=== PATIENT | female | born 1945 | race Two or more races ===

== ENCOUNTER 2016-07-11 11:25 | Emergency (ER) | payer SELFPAY ==
[~2016-07-11] VITALS: Ht 152.4 cm; Wt 72.6 kg
[2016-07-11] MEDS ORDERED: LORazepam 2MG/ML-1ML VIAL IV ONE (13:15)
[2016-07-11 13:23] VITALS: BP 124/71
[2016-07-11 13:49] LABS: Basophils # (auto) 0 uL; Basophils % (auto) 0.1 % (0.0-2.0); DEFINITIVE VIEW TRANSMISSION; Eosinophils # (auto) 0 uL; Eosinophils % (auto) 0.2 % (0.0-7.0); Hematocrit 27.6 % (36.0-46.0); Hemoglobin 8.2 g/dL (12.2-16.2); Lymphocytes # (auto) 2.1 uL; Lymphocytes % (auto) 15.6 % (10.0-50.0); Mean Corpuscular Hemoglobin 19.8 pg (28.0-32.0); Mean Corpuscular Hgb Conc. 29.8 g/dL (32.0-36.0); Mean Corpuscular Volume 66.5 fL (80.0-100.0); Mean Platelet Volume 9.2 fL (7.4-10.4); Monocytes % (auto) 7.2 % (0.0-12.0); Neutrophils # (auto) 10.3 uL; Neutrophils % (auto) 76.9 % (37.0-80.0); Platelet Count (auto) 374 10^3/uL (140-450); White Blood Cell 13.4 10^3/uL (4.4-10.8)
[2016-07-11 13:54] LABS: Albumin 3.2 g/dL (3.4-5.0); BUN/Creatinine Ratio 56.3; Bilirubin, Total 0.5 mg/dL (0.2-1.0); Calcium 8.2 mg/dL (8.5-10.1); Potassium 3.5 mmol/L (3.5-5.1); Red Cell Distribution Width 22.2 % (11.6-16.0); Total Protein 6.4 g/dL (6.4-8.2)
[2016-07-11 14:03] LABS: Anisocytosis Moderate; Hypochromia Marked; Platelet Estimate Adequate
[2016-07-11 14:04] LABS: Microcytosis Moderate; Schistocytes FEW
[2016-07-11 14:05] LABS: B-Type Natriuretic Peptide 127.69 pg/mL (0-100); Temperature: 23.5 C (20.0-25.0)
[2016-07-11] MEDS ORDERED: FUROSEMIDE 40 MG TAB PO ONE (14:30)
[2016-07-11] MEDS ORDERED: cefTRIAXone W LIDOCAINE 1 GM IM IM ONE (14:30)
[2016-07-11] MEDS ORDERED: cefTRIAXone 1GM/50ML D5W 50 ML IV ONE ×2 (15:07→15:15)
== END 2016-07-11 16:03 | disposition home or self-care (01) ==
LOC: ER 11:25
DX: J45.909 Unspecified asthma, uncomplicated (principal); I10 Essential (primary) hypertension
CPT/HCPCS: 36415; 71020; 80053; 83880; 85025; 93005; 94761; 96365; 96375; 99285; J0696; J2060

== ENCOUNTER 2016-08-30 18:11 | Emergency (ER) | payer MEDICAID ==
[~2016-08-30] VITALS: Ht 154.9 cm; Wt 68.0 kg
[2016-08-30 18:40] VITALS: BP 154/79
== END 2016-08-30 19:41 | disposition home or self-care (01) ==
LOC: ER 18:18
DX: J45.909 Unspecified asthma, uncomplicated (principal); I10 Essential (primary) hypertension; M54.9 Dorsalgia, unspecified; G89.29 Other chronic pain; Z76.0 Encounter for issue of repeat prescription

== ENCOUNTER → 2017-01-16 | Day surgery (SDC) | payer MEDICAID ==
[2017-01-13 11:28] LABS: Basophils # (auto) 0.1 uL; Eosinophils # (auto) 0.1 uL; Eosinophils % (auto) 1.4 % (0.0-7.0); Hemoglobin 8.7 g/dL (12.2-16.2); Monocytes # (auto) 0.4 uL; Monocytes % (auto) 6.5 % (0.0-12.0)
[2017-01-13 11:32] LABS: Basophils % (auto) 1.3 % (0.0-2.0); Hematocrit 29.2 % (36.0-46.0); Lymphocytes # (auto) 1.7 uL; Lymphocytes % (auto) 26.6 % (10.0-50.0); Mean Corpuscular Hemoglobin 19.7 pg (28.0-32.0); Mean Corpuscular Hgb Conc. 29.8 g/dL (32.0-36.0); Mean Corpuscular Volume 66.1 fL (80.0-100.0); Mean Platelet Volume 8.5 fL (6.9-10.8); Neutrophils # (auto) 4.1 uL; Neutrophils % (auto) 64.2 % (37.0-80.0); Nucleated Red Blood Cells % 0.1 %; Platelet Count (auto) 368 10^3/uL (140-450); White Blood Cell 6.4 10^3/uL (4.4-10.8)
[2017-01-13 11:33] LABS: Red Cell Distribution Width 21.2 % (11.8-14.3)
[2017-01-13 11:54] LABS: INR 0.96 (0.9-1.15); Prothrombin Time 10.5 sec (9.37-12.3)
[2017-01-13 13:54] LABS: Anisocytosis Moderate; Hypochromia Marked; Microcytosis Marked; Ovalocytes FEW; Schistocytes FEW; Stomatocytes Few
[2017-01-13 13:55] LABS: Platelet Estimate Adequate
[~2017-01-16] VITALS: Ht 144.8 cm; Wt 68.0 kg
[~2017-01-16] MED LIST: LIDOCAINE VISCOUS 2% 15ML UD ONE; SODIUM CHLORIDE LOCK 10 ML ONE; diphenhdrAMINE HCL 50 MG/1 ML VL ONE
[2017-01-16] MEDS: fentaNYL CITRATE 100 MCG/2 ML VL ONE ×3 (10:55→11:09)
[2017-01-16] MEDS: MIDAZOLAM HCL 5 MG/ML-1ML VIAL ONE ×3 (10:55→11:09)
[2017-01-16 15:00] VITALS: BP 108/63
== END | disposition home or self-care (01) ==
LOC: GI 09:21
PROVIDERS: ATTEND Internal Medicine Gastroenterology
DX: K64.8 Other hemorrhoids (principal); K29.50 Unspecified chronic gastritis without bleeding; K29.80 Duodenitis without bleeding; J45.909 Unspecified asthma, uncomplicated; E66.9 Obesity, unspecified
CPT/HCPCS: 43239; 45378; J1200; J3010; 36415; 82962; 85025; 85610; 99152; 99153; J2250